=== PATIENT | female | born 1975 | race Caucasian/White ===

== ENCOUNTER → 2016-12-15 | Outpatient (CLI) | payer OTHER ==
[~2016-12-15] MED LIST: ALPR1TAB2 PO; ETHY1TAB3 PO; LSNP10T PO; NITR100C3 PO; PREN1TAB44 PO; PRENATAL VITAMIN; SERT100T PO; SERT25TA69 PO
[2016-12-15 12:08] LABS: BASOPHILS % (AUTO) 0 % (0-2); EOSINOPHILS # (AUTO) 0.1 10^3uL; EOSINOPHILS % (AUTO) 2 % (0-4); LYMPHOCYTES # (AUTO) 1.5 X10^3; MEAN CORPUSCULAR HEMOGLOBIN 31.1 PG (26.0-34.0); MEAN CORPUSCULAR HGB CONC 33.9 g/dL (31.0-37.0); MEAN CORPUSCULAR VOLUME 92 FL (80-100); MEAN PLATELET VOLUME 11.2 FL (6.0-9.5); MONOCYTES # (AUTO) 0.5 X10^3; MONOCYTES % (AUTO) 7 % (3-11); NEUTROPHILS # (AUTO) 4.1 X10^3; NEUTROPHILS % (AUTO) 66 % (51-67); PLATELET COUNT 192 10^3uL (150-450); WHITE BLOOD COUNT 6.15 10^3uL (4.0-11.0)
[2016-12-15 12:18] LABS: ALBUMIN 4.3 g/dL (3.4-5.0); ANION GAP 12.8 MEQ/L (3-15); CALCULATED IONIZED CALCIUM 3.9 mg/dL (3.8-4.6); TOTAL PROTEIN 7.3 g/dL (6.4-8.5)
[2016-12-15 13:02] LABS: BILIRUBIN,URINE Negative (Negative); CLARITY,URINE Clear; COLOR,URINE Yellow; GLUCOSE, URINE (UA) Negative (Negative); LEUKOCYTE ESTERASE ,URINE Negative (Negative); PH,URINE 5.5 (5.0 - 8.0); UROBILINOGEN,URINE 0.2 mg/dL (0.2-1.0)
== END ==
LOC: LAB 11:55
PROVIDERS: ATTEND Family Medicine
DX: R10.11 Right upper quadrant pain (principal); R10.2 Pelvic and perineal pain; N94.19 Other specified dyspareunia; R30.0 Dysuria
CPT/HCPCS: 36415; 80053; 81003; 84443; 85025

== ENCOUNTER → 2016-12-28 | Outpatient (CLI) | payer OTHER ==
--- NOTE | 2016-12-28 10:25 | Diagnostic Imaging Report ---
PROCEDURE: US PELVIC (NON OB) TECHNIQUE: Multiple real-time grayscale images were obtained over the pelvis in various projections transabdominally. INDICATION: Dyspareunia. COMPARISON: 03/05/2013. DISCUSSION: Transabdominal sonographic evaluation of the pelvis was performed. The uterus is surgically absent. The ovaries appear normal in echotexture and size bilaterally with normal color Doppler blood flow. The right ovary measures 2.8 x 2.0 x 1.5 cm. The left ovary measures 3.4 x 2.2 x 2.1 cm. Normal follicular activity is present within the ovaries. No abnormal adnexal mass or fluid. IMPRESSION: 1. Status post hysterectomy. No acute abnormality identified within the pelvis otherwise. Dictated by: Dictated on workstation # [id number]
--- NOTE | 2016-12-28 10:25 | Diagnostic Imaging Report ---
PROCEDURE: US abdomen complete. TECHNIQUE: Multiple real-time grayscale images were obtained over the abdomen in various projections. Indication: Right upper quadrant pain. Comparison: None. Discussion: Sonographic evaluation of the abdomen was performed. The liver appears normal in echotexture and size. No hepatic mass identified. The gallbladder appears normal without evidence of cholelithiasis, wall thickening, or pericholecystic fluid. No evidence of intra or extrahepatic biliary duct dilatation. The common bile duct is normal measuring 0.2 cm. The pancreas appears normal as visualized. The spleen appears normal in echotexture and size measuring 9.6 cm. The visualized aorta and IVC appear within normal limits. The bilateral kidneys appear normal in size without evidence of hydronephrosis or renal mass. The bilateral renal permits are mildly hyperechoic and appear symmetric bilaterally. Findings are nonspecific though could be seen with benign renal tubular ectasia. The right kidney measures 10.9 cm. The left kidney measures 11.9 cm. There is no ascites or abnormal bowel loops identified. No sonographic Collins sign was reported. Impression: 1. Unremarkable abdominal ultrasound. Dictated by: Dictated on workstation # [id number]
--- NOTE | 2016-12-29 08:45 | Diagnostic Imaging Report ---
INDICATION: Screening mammogram. COMPARISON: None. TECHNIQUE: Baseline digital screening mammography was obtained with a Computer Aided Detection (CAD) system. FINDINGS: Scattered fibroglandular densities are present. There is no mass or suspicious calcification. IMPRESSION: Negative baseline mammogram. No malignancy. ACR BI-RADS Category 1: Negative. Result letter will be mailed to the patient. Note: At least 10% of breast cancer is not imaged by mammography. Dictated by: Dictated on workstation # [id number]
== END ==
LOC: RAD 09:03
PROVIDERS: ATTEND Family Medicine
DX: Z12.31 Encounter for screening mammogram for malignant neoplasm of breast (principal); R10.2 Pelvic and perineal pain; N94.19 Other specified dyspareunia; R30.0 Dysuria; R10.84 Generalized abdominal pain; Z90.710 Acquired absence of both cervix and uterus
CPT/HCPCS: 76700; 76856; G0202